=== PATIENT | male | born 1960 | race Caucasian/White ===

== ENCOUNTER → 2020-07-22 08:55 | Outpatient (CLI) | payer SELFPAY ==
[2020-07-22 11:19] LABS: Prostate Specific Ag Screen 0.5 ng/ml (0.0-4.0)
== END ==
PROVIDERS: Visit Provider Urology
DX: Z12.5 Encounter for screening for malignant neoplasm of prostate (principal)
CPT/HCPCS: 36415; G0103

== ENCOUNTER → 2021-10-02 12:06 | Outpatient (CLI) | payer SELFPAY ==
[2021-10-02 15:44] LABS: Prostate Specific Ag Screen 0.8 ng/ml (0.0-4.0)
== END ==
PROVIDERS: Visit Provider Urology
DX: Z12.5 Encounter for screening for malignant neoplasm of prostate (principal)
CPT/HCPCS: 36415; G0103